=== PATIENT | male | born 1955 | race Two or more races ===

== ENCOUNTER 2021-05-03 02:42 | Emergency (ER) | payer MEDICARE, OTHER ==
[~2021-05-03] VITALS: Ht 172.7 cm; Wt 64.4 kg
[2021-05-03] MEDS ORDERED: DEXAMETHASONE SOD PHOSPHATE 10 MG/ML VIAL ONE (02:58)
[2021-05-03] MEDS ORDERED: CARISOPRODOL 350 MG TABLET ONE (02:58)
[2021-05-03] MEDS ORDERED: MORPHINE SULFATE INJ 4 MG/ML DISP.SYRIN ONE (02:59)
[2021-05-03] MEDS ORDERED: CARISOPRODOL 350 MG TABLET PO ONE (03:00)
[2021-05-03] MEDS ORDERED: MORPHINE SULFATE INJ 2 MG/ML DISP.SYRIN IM ONE (03:00)
[2021-05-03] MEDS ORDERED: DEXAMETHASONE SOD PHOSPHATE 4 MG/ML VIAL IM ONE (03:00)
[2021-05-03] MEDS ORDERED: OXYC1TAB12 PO (03:01)
[2021-05-03] MEDS ORDERED: CARI350T PO (03:01)
--- NOTE | 2021-05-03 03:09 | NUR ---
PATIENT CAME TO ER BED 9 C/O RIGHT SCIATICA PAIN. PATIENT STATES THAT HE HAD this pain for 3X week patient is [id number]. denies sob. breathing evenly and unlabored on room air. connected to the monitor.
--- NOTE | 2021-05-03 03:09 | NUR ---
taken to radiology
--- NOTE | 2021-05-03 04:54 | NUR ---
Patient discharged to home in stable condition. Written and verbal after care instructions given. Patient verbalizes understanding of instruction. pt ambulatory with a steady gait. Pt awaiting ride
[2021-05-03 04:55] VITALS: BP 125/88
== END 2021-05-03 04:54 | disposition home or self-care (01) ==
LOC: ER 02:45
DX: M53.3 Sacrococcygeal disorders, not elsewhere classified (principal); M54.31 Sciatica, right side; Z85.05 Personal history of malignant neoplasm of liver
CPT/HCPCS: 72131; 96372 ×2; 99284; J1100; J2270